=== PATIENT | female | born 1960 | race Asian ===

== ENCOUNTER 2017-05-16 11:00 | Emergency (ER) | payer SELFPAY ==
--- NOTE | 2017-05-16 12:19 | UC ---
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 She got some water in it bathing last night, and since then it has been painful and hearing muffled. Denies fever , cough, drainage, or URI sx. - History of Current Complaint Chief Complaint: UCEar Stated Complaint: EAR PAIN Time Seen by Provider: 05/16/17 12:06 Hx Obtained From: Patient, Family/Continuous Improvement Engineer ?: No Onset/Duration: Gradual Onset, Lasting Hours Severity Initially: Mild Severity Currently: Mild Aggravating Factors: Nothing Alleviating Factors: Nothing Associated Signs/Symptoms: Positive: Discharge, Hearing Loss. Negative: URI Symptoms - Allergies/Home Medications Home Medications: Home Medications Esomeprazole Magnesium [Nexium 24Hr] 20 mg PO DAILY 05/16/17 [History Confirmed 05/16/17] metFORMIN* [Glucophage 850 MG TAB *] 850 mg PO BID 05/16/17 [History Confirmed 05/16/17] PMH/Surg Hx/FS Hx/Imm Hx Endocrine History: Diabetes - Surgical History Surgical History: None - Family History Known Family History: Positive: Diabetes - Social History Lives: With Family Alcohol Use: None Substance Use Type: None Smoking Status (MU): Never Smoked Tobacco Review of Systems Constitutional: Negative Skin: Negative Eyes: Negative ENT: Ear Ache Respiratory: Negative Cardiovascular: Negative Gastrointestinal: Negative Genitourinary: Negative Motor: Negative Neurovascular: Negative Musculoskeletal: Negative Neurological: Negative Psychological: Negative All Other Systems Reviewed And Are Negative: Yes Physical Exam Triage Information Reviewed: Yes Appearance: Well-Appearing, No Pain Distress, Well-Nourished Vital Signs: Initial Vital Signs Temp 97.5 F 05/16/17 11:15 Pulse 71 05/16/17 11:15 Resp 17 05/16/17 11:15 BP 115/74 05/16/17 11:15 Pulse Ox 97 05/16/17 11:15 Vital Signs Reviewed: Yes Eye Exam: Normal Eyes: Positive: Conjunctiva Clear ENT: Positive: Pharynx normal, TMs normal - L only, Other: - R TM obscured by cerumen, but not impacted. Negative: Tonsillar swelling, Tonsillar exudate Dental Exam: Normal Neck exam: Normal Neck: Positive: Supple, Nontender, No Lymphadenopathy Respiratory Exam: Normal Respiratory: Positive: Chest non-tender, Lungs clear, Normal breath sounds, No respiratory distress, No accessory muscle use Cardiovascular Exam: Normal Cardiovascular: Positive: RRR, No Murmur Neurological: Positive: Alert Psychological Exam: Normal Skin Exam: Normal Ear Complaint Course/Dx - Differential Dx/Diagnosis Provider Diagnoses: R AOM with chronic TM perforation Discharge - Discharge Plan Condition: Stable Disposition: HOME Prescriptions: Neomyc/Polym/HC 1% OTIC SUSP* [Cortisporin Otic Susp 1%*] 4 drop RIGHT EAR QID # 1 btl Patient Education Materials: Otitis Media (ED), Ruptured Eardrum (ED) Referrals: No Primary Care Phys,NOPCP [Primary Care Provider] - Additional Instructions: If you do not have clear improvement within 4 days, please call or return.
== END 2017-05-16 12:26 | disposition home or self-care (01) ==
LOC: UCEAST 11:00
DX: H66.91 Otitis media, unspecified, right ear (principal); H72.91 Unspecified perforation of tympanic membrane, right ear
CPT/HCPCS: 99202; G0463

== ENCOUNTER 2017-05-22 15:16 | Emergency (ER) | payer SELFPAY ==
[2017-05-22 17:22] VITALS: BP 117/79
--- NOTE | 2017-05-22 17:56 | UC ---
Scarlett Pisano Edward, scribed for Ahmet Camacho MD on 05/22/17 at 1744 . Ear Complaint HPI - HPI Summary HPI Summary: 57 y/o female presents to [facility] c/o R ear pain starting one week ago. The pain is rated 4/10 at triage, described as an aching pain. Denies fever, sore throat. Pt was washing her hair and got water in her R ear. Pt has been using drops but they are not alleviating symptoms. Information is provided by the patient's daughter. PMHx chronic perforation in R TM. - History of Current Complaint Chief Complaint: UCEar Stated Complaint: EAR PAIN Time Seen by Provider: 05/22/17 17:37 Hx Obtained From: Patient Onset/Duration: Lasting Weeks - 1 week, Still Present Pain Intensity: 4 Pain Scale Used: 0-10 Numeric - Allergies/Home Medications Allergies/Adverse Reactions: Allergies Allergy/AdvReac Type Severity Reaction Status Date / Time No Known Allergies Allergy Verified 05/22/17 17:22 PMH/Surg Hx/FS Hx/Imm Hx Previously Healthy: No Endocrine History: Diabetes - Surgical History Surgical History: Yes Surgery Procedure, Year, and Place: One ovary removed - Family History Known Family History: Positive: Diabetes - Social History Alcohol Use: None Substance Use Type: None Smoking Status (MU): Never Smoked Tobacco Review of Systems Constitutional: Negative Skin: Negative Eyes: Negative ENT: Ear Ache Respiratory: Negative Cardiovascular: Negative Gastrointestinal: Negative Genitourinary: Negative Motor: Negative Neurovascular: Negative Musculoskeletal: Negative Neurological: Negative Psychological: Negative All Other Systems Reviewed And Are Negative: Yes Physical Exam Triage Information Reviewed: Yes Appearance: Well-Appearing, No Pain Distress Vital Signs: Initial Vital Signs Temp 98.2 F 05/22/17 17:15 Pulse 66 05/22/17 17:15 Resp 18 05/22/17 17:15 BP 117/79 05/22/17 17:15 Pulse Ox 99 05/22/17 17:15 Vital Signs Reviewed: Yes Eye Exam: Normal ENT: Positive: Other: - Debris in R ear canal. R TM bulging. L TM normal. Neck: Positive: Supple, Nontender Respiratory: Positive: Lungs clear, Normal breath sounds Cardiovascular: Positive: RRR Abdomen Description: Positive: Nontender Bowel Sounds: Positive: Present Musculoskeletal Exam: Normal Musculoskeletal: Positive: Strength Intact, ROM Intact Neurological Exam: Normal Neurological: Positive: Muscle Tone Normal Psychological: Positive: Age Appropriate Behavior Skin Exam: Normal, Other - Warm, dry, color reflects adequate perfusion Ear Complaint Course/Dx - Course Course Of Treatment: PAST MEDICATIONS REVIEWED ON VISIT. CHANGE ABX TO CIPRODEX OTIC AND ADD AUGMENTIN AND DEBROX - Differential Dx/Diagnosis Provider Diagnoses: RIGHT OTITIS EXTERNA Discharge - Discharge Plan Condition: Stable Disposition: HOME Prescriptions: Amoxicillin/Clavulanate TAB* [Augmentin TAB 875*] 875 mg PO BID #20 tab Carbamide Peroxide 6.5% OTIC* [DEBROX 6.5% Otic*] 5 drop RIGHT EAR BID #1 bottle Ciproflox/Dexameth OTIC.SUSP* [Ciprodex OTIC.SUSP*] 4 drop .SEE ORDER BID #1 btl Patient Education Materials: Otitis Externa (ED) Referrals: [facility] [place] [facility] REFERRAL [Outside] No Primary Care Phys,NOPCP [Primary Care Provider] - Additional Instructions: FOLLOW UP WITH YOUR DOCTOR. GET RECHECKED FOR ANY WORSENING OF YOUR CONDITION OR QUESTIONS OR CONCERNS. The documentation as recorded by the Scarlett rebolledo Edward accurately reflects the service I personally performed and the decisions made by me, Ahmet Camacho MD.
== END 2017-05-22 17:55 | disposition home or self-care (01) ==
LOC: UCEAST 15:16
DX: H60.91 Unspecified otitis externa, right ear (principal); E11.9 Type 2 diabetes mellitus without complications; Z90.721 Acquired absence of ovaries, unilateral
CPT/HCPCS: 99212; G0463